=== PATIENT | male | born 1990 | race Caucasian/White ===

== ENCOUNTER 2021-05-20 22:16 | Inpatient (IN) ==
[2021-05-20] MEDS ORDERED: SODIUM CHLORIDE 0.9% 1,000 ML IV STA (22:54)
[2021-05-20 23:39] LABS: Basophils % 0.2 % (0.0-0.8); Hematocrit 42.5 VOL% (42.0-52.0); Hemoglobin 14.1 GM/DL (14.0-18.0); Immature Granulocytes % 0.9 %; Immature Granulocytes Absolute 0.04 #; Lymphocytes # 0.7 10*3/uL (1.4-4.0); Lymphocytes % 15.3 % (21.2-54.2); Mean Corpuscular HGB Conc 33.2 GM/DL (32-36); Mean Corpuscular Volume 86.7 FL (87-102); Monocytes % 1.8 % (1.7-12.7); Neutrophils % 81.8 % (38.7-73.9); Platelet Count 99 T/CUMM (130-400); Red Cell Distribution Width 13.7 % (9.3-17.3); White Blood Count 4.4 T/CUMM (4-12)
[2021-05-20] MEDS ORDERED: AZITHROMYCIN INJ 500 MG in SODIUM CHLORIDE 0.9% 250 ML IV STA (23:56)
[2021-05-20 23:59] LABS: Albumin 3.4 G/DL (3.4-5.0); Bilirubin,Total < 0.39 MG/DL (0.20-1.00); Blood Urea Nitrogen 19 MG/DL (7-18); Calcium 8.2 MG/DL (8.5-10.1); Carbon Dioxide 23 MMOL/L (21-32); Estimated Glom Filtration Rate 92 ML/MIN; Glucose 111 MG/DL (74-106); Osmolality,Calculated 281.4 MOS/KG (273-304); Potassium 3.5 MMOL/L (3.5-5.1); Sodium 140 MMOL/L (136-145)
[2021-05-21] LABS: Alanine Aminotransferase 100 U/L (16-61); Aspartate Amino Transferase 91 U/L (0-37)
[2021-05-21 00:03] LABS: Alkaline Phosphatase 39 U/L (45-117)
[2021-05-21 00:04] LABS: Ferritin 1382.5 ng/mL (26-388)
[2021-05-21] MEDS: ENOXAPARIN 40 MG/0.4 ML SYRINGE SUBCUT SCH (00:27)
[2021-05-21] MEDS: ONDANSETRON 4 MG/2 ML VIAL IV PRN ×2 (01:13→23:02)
[2021-05-21] MEDS: ACETAMINOPHEN 325 MG TABLET PO PRN ×3 (01:13→17:23)
[2021-05-21 02:21] LABS: Band Neutrophils 1 % (0-10); Lymphocytes 11 % (20-55); Segmented Neutrophils 87 % (50-85); Total Cells Counted 100
[2021-05-21 02:22] LABS: Microcytosis 1+; Platelet Estimate Decreased
[2021-05-21 03:56] LABS: ABG Base Excess 0.6 MMOL/L (-2.5-2.5); ABG HCO3 24.6 MMOL/L (20-26); ABG Oxygen Saturation 94.5 % (95-100); ABG PCO2 37.5 MM HG (35-48); ABG PH 7.435 (7.35-7.45); ABG PO2 70.4 MM HG (80-95); ABG TCO2 25.8 MMOL/L (23-27)
[2021-05-21] MEDS ORDERED: oxyCODONE IR 5 MG TABLET PO PRN (03:58)
[2021-05-21] MEDS: ZINC GLUCONATE 50 MG TABLET PO SCH (08:46)
[2021-05-21] MEDS: ASCORBIC ACID 500 MG TABLET PO SCH ×2 (08:46→21:07)
[2021-05-21] MEDS: CHOLECALCIFEROL 1,000 UNIT TABLET PO SCH (08:46)
[2021-05-21] MEDS: FAMOTIDINE 20 MG TABLET PO SCH ×2 (08:46→21:07)
[2021-05-21] MEDS: CETIRIZINE 10 MG TABLET PO SCH (08:47)
[2021-05-21] MEDS: DEXAMETHASONE 4 MG/1 ML VIAL IV SCH (08:48)
[2021-05-21] MEDS ORDERED: REMDESIVIR 200 MG in SODIUM CHLORIDE 0.9% 210 ML IV ONE ×2 (09:00→13:45)
[2021-05-21 10:07] LABS: Basophils % 0.2 % (0.0-0.8); Hematocrit 39.5 VOL% (42.0-52.0); Hemoglobin 12.9 GM/DL (14.0-18.0); Immature Granulocytes % 0.6 %; Immature Granulocytes Absolute 0.03 #; Lymphocytes # 0.9 10*3/uL (1.4-4.0); Lymphocytes % 18.2 % (21.2-54.2); Mean Corpuscular HGB Conc 32.7 GM/DL (32-36); Mean Corpuscular Volume 87.2 FL (87-102); Mean Platelet Volume 11.1 FL (9.6-12.0); Monocytes % 1.9 % (1.7-12.7); Neutrophils % 79.1 % (38.7-73.9); Platelet Count 116 T/CUMM (130-400); Red Blood Count 4.53 MC/CUMM (3.8-5.5); White Blood Count 4.8 T/CUMM (4-12)
[2021-05-21 10:48] LABS: Alanine Aminotransferase 148 U/L (16-61); Albumin 2.8 G/DL (3.4-5.0); Alkaline Phosphatase 34 U/L (45-117); Aspartate Amino Transferase 145 U/L (0-37); Bilirubin,Total < 0.39 MG/DL (0.20-1.00); Blood Urea Nitrogen 13 MG/DL (7-18); Calcium 7.8 MG/DL (8.5-10.1); Carbon Dioxide 26 MMOL/L (21-32); Estimated Glom Filtration Rate 129 ML/MIN; Ferritin 2344.2 ng/mL (26-388); Glucose 119 MG/DL (74-106); Osmolality,Calculated 275.7 MOS/KG (273-304); Potassium 3.6 MMOL/L (3.5-5.1); Sodium 138 MMOL/L (136-145); Total Protein 6.2 G/DL (6.4-8.2)
[2021-05-21 11:32] LABS: Atypical Lymphocytes Few; Band Neutrophils 4 % (0-10); Hypochromasia 1+; Lymphocytes 25 % (20-55); Microcytosis 1+; Segmented Neutrophils 69 % (50-85); Total Cells Counted 100
[2021-05-21 11:33] LABS: Platelet Estimate Decreased
[2021-05-21] MEDS: cefTRIAXone 1,000 MG in SODIUM CHLORIDE 0.9% 100 ML IV SCH (12:21)
[2021-05-21] MEDS: MELATONIN 3 MG TABLET PO PRN (21:12)
[2021-05-22] MEDS ORDERED: AZITHROMYCIN INJ 500 MG in SODIUM CHLORIDE 0.9% 250 ML IV ONE (00:03)
[2021-05-22] MEDS: ENOXAPARIN 40 MG/0.4 ML SYRINGE SUBCUT SCH (02:23)
[2021-05-22] MEDS: ASCORBIC ACID 500 MG TABLET PO SCH ×2 (09:08→20:16)
[2021-05-22] MEDS: CETIRIZINE 10 MG TABLET PO SCH (09:08)
[2021-05-22] MEDS: REMDESIVIR 100 MG in SODIUM CHLORIDE 0.9% 100 ML IV SCH (09:08)
[2021-05-22] MEDS: DEXAMETHASONE 4 MG/1 ML VIAL IV SCH (09:08)
[2021-05-22] MEDS: CHOLECALCIFEROL 1,000 UNIT TABLET PO SCH (09:09)
[2021-05-22] MEDS: FAMOTIDINE 20 MG TABLET PO SCH ×2 (09:09→20:16)
[2021-05-22] MEDS: ZINC GLUCONATE 50 MG TABLET PO SCH (09:09)
[2021-05-22] MEDS: cefTRIAXone 1,000 MG in SODIUM CHLORIDE 0.9% 100 ML IV SCH (10:53)
[2021-05-22] MEDS: ENOXAPARIN 100 MG/ML SYRINGE SUBCUT SCH (16:17)
[2021-05-22] MEDS ORDERED: ALPRAZolam 0.5 MG TABLET PO ONE (19:38)
[2021-05-22] MEDS: ONDANSETRON 4 MG/2 ML VIAL IV PRN (21:59)
[2021-05-22] MEDS: MELATONIN 3 MG TABLET PO PRN (21:59)
[2021-05-23] MEDS: ENOXAPARIN 100 MG/ML SYRINGE SUBCUT SCH ×2 (02:35→16:06)
[2021-05-23] MEDS ORDERED: ALPRAZolam 0.5 MG TABLET PO ONE (03:45)
[2021-05-23] MEDS: REMDESIVIR 100 MG in SODIUM CHLORIDE 0.9% 100 ML IV SCH (09:35)
[2021-05-23] MEDS: CETIRIZINE 10 MG TABLET PO SCH (09:36)
[2021-05-23] MEDS: DEXAMETHASONE 4 MG/1 ML VIAL IV SCH (09:37)
[2021-05-23] MEDS: FAMOTIDINE 20 MG TABLET PO SCH ×2 (09:37→20:37)
[2021-05-23] MEDS: ZINC GLUCONATE 50 MG TABLET PO SCH (09:37)
[2021-05-23] MEDS: CHOLECALCIFEROL 1,000 UNIT TABLET PO SCH (09:37)
[2021-05-23] MEDS: ASCORBIC ACID 500 MG TABLET PO SCH ×2 (09:37→20:38)
[2021-05-23] MEDS: cefTRIAXone 1,000 MG in SODIUM CHLORIDE 0.9% 100 ML IV SCH (11:11)
[2021-05-23] MEDS ORDERED: ALBUTEROL 2.5 MG/3 ML NEB RESP TX PRN (16:38)
[2021-05-23] MEDS: ACETAMINOPHEN 325 MG TABLET PO PRN (19:31)
[2021-05-23] MEDS: traZODone 50 MG TABLET PO PRN (20:38)
[2021-05-23] MEDS: MELATONIN 3 MG TABLET PO SCH (21:05)
[2021-05-23] MEDS: CHOLECALCIFEROL 5,000 UNIT TABLET PO SCH (21:05)
[2021-05-24] MEDS: methylPREDNISolone SOD SUC 40 MG/1 ML VIAL IV SCH ×5 (00:01→18:33)
[2021-05-24] MEDS: guaiFENesin/CODEINE 5 ML LIQUID PO PRN (00:01)
[2021-05-24] MEDS: ENOXAPARIN 100 MG/ML SYRINGE SUBCUT SCH (03:30)
[2021-05-24 03:47] LABS: ABG Base Excess 2.2 MMOL/L (-2.5-2.5); ABG HCO3 26.2 MMOL/L (20-26); ABG Oxygen Saturation 89.4 % (95-100); ABG PCO2 37.8 MM HG (35-48); ABG PH 7.447 (7.35-7.45); ABG PO2 58.9 MM HG (80-95); ABG TCO2 22.4 MMOL/L (23-27)
[2021-05-24 06:12] LABS: Basophils % 0.2 % (0.0-0.8); Hematocrit 42.8 VOL% (42.0-52.0); Hemoglobin 13.7 GM/DL (14.0-18.0); Immature Granulocytes % 1.5 %; Immature Granulocytes Absolute 0.08 #; Lymphocytes # 1.1 10*3/uL (1.4-4.0); Lymphocytes % 20.1 % (21.2-54.2); Mean Corpuscular Volume 87.9 FL (87-102); Mean Platelet Volume 10.4 FL (9.6-12.0); Monocytes % 7.2 % (1.7-12.7); Platelet Count 250 T/CUMM (130-400); Red Blood Count 4.87 MC/CUMM (3.8-5.5); Red Cell Distribution Width 13.4 % (9.3-17.3); White Blood Count 5.3 T/CUMM (4-12)
[2021-05-24 06:55] LABS: Calcium 8.3 MG/DL (8.5-10.1); Osmolality,Calculated 280.5 MOS/KG (273-304)
[2021-05-24 07:01] LABS: Hypochromasia 1+; Lymphocytes 13 % (20-55); Microcytosis 1+; Platelet Estimate Adequate; Segmented Neutrophils 84 % (50-85); Total Cells Counted 100
[2021-05-24] MEDS: ZINC GLUCONATE 50 MG TABLET PO SCH (09:16)
[2021-05-24] MEDS: CHOLECALCIFEROL 5,000 UNIT TABLET PO SCH ×2 (09:16→22:01)
[2021-05-24] MEDS: ASCORBIC ACID 500 MG TABLET PO SCH ×2 (09:16→22:00)
[2021-05-24] MEDS: FAMOTIDINE 20 MG TABLET PO SCH ×2 (09:16→22:00)
[2021-05-24] MEDS: CETIRIZINE 10 MG TABLET PO SCH (09:16)
[2021-05-24 10:07] LABS: Alanine Aminotransferase 105 U/L (16-61); Alkaline Phosphatase 42 U/L (45-117); Aspartate Amino Transferase 68 U/L (0-37); Bilirubin,Direct < 0.100 MG/DL (0.0-0.20); Bilirubin,Indirect 0.3 MG/DL (0.0-1.0); Bilirubin,Total < 0.39 MG/DL (0.20-1.00); Total Protein 6.7 G/DL (6.4-8.2)
[2021-05-24] MEDS: cefTRIAXone 1,000 MG in SODIUM CHLORIDE 0.9% 100 ML IV SCH (11:45)
[2021-05-24] MEDS: IVERMECTIN 3 MG TABLET PO SCH (20:48)
[2021-05-24] MEDS: traZODone 50 MG TABLET PO PRN (22:00)
[2021-05-24] MEDS: MELATONIN 3 MG TABLET PO SCH (22:00)
[2021-05-24] MEDS: ENOXAPARIN 60 MG/0.6 ML SYRINGE SUBCUT SCH (22:00)
[2021-05-25] MEDS: methylPREDNISolone SOD SUC 40 MG/1 ML VIAL IV SCH ×4 (00:01→17:34)
[2021-05-25] MEDS: guaiFENesin/CODEINE 5 ML LIQUID PO PRN (05:26)
[2021-05-25 07:09] LABS: Basophils % 0.2 % (0.0-0.8); Hematocrit 42.9 VOL% (42.0-52.0); Hemoglobin 13.8 GM/DL (14.0-18.0); Immature Granulocytes % 1.5 %; Immature Granulocytes Absolute 0.08 #; Lymphocytes # 1.2 10*3/uL (1.4-4.0); Lymphocytes % 22.1 % (21.2-54.2); Mean Corpuscular HGB Conc 32.2 GM/DL (32-36); Mean Corpuscular Volume 87.4 FL (87-102); Mean Platelet Volume 9.9 FL (9.6-12.0); Monocytes % 8.2 % (1.7-12.7); Platelet Count 301 T/CUMM (130-400); Red Blood Count 4.91 MC/CUMM (3.8-5.5); Red Cell Distribution Width 13.2 % (9.3-17.3); White Blood Count 5.3 T/CUMM (4-12)
[2021-05-25 07:33] LABS: Band Neutrophils 1 % (0-10); Lymphocytes 20 % (20-55); Segmented Neutrophils 69 % (50-85); Total Cells Counted 100
[2021-05-25 07:34] LABS: Atypical Lymphocytes Few; Hypochromasia 1+; Microcytosis 1+; Platelet Estimate Normal
[2021-05-25 07:45] LABS: Calcium 8.4 MG/DL (8.5-10.1); Ferritin 1328.6 ng/mL (26-388); Osmolality,Calculated 283.4 MOS/KG (273-304); Potassium 3.8 MMOL/L (3.5-5.1)
[2021-05-25] MEDS: ENOXAPARIN 60 MG/0.6 ML SYRINGE SUBCUT SCH ×2 (09:13→21:43)
[2021-05-25] MEDS: ASCORBIC ACID 500 MG TABLET PO SCH ×2 (09:15→21:42)
[2021-05-25] MEDS: cefTRIAXone 1,000 MG in SODIUM CHLORIDE 0.9% 100 ML IV SCH (09:15)
[2021-05-25] MEDS: ZINC GLUCONATE 50 MG TABLET PO SCH (09:16)
[2021-05-25] MEDS: CHOLECALCIFEROL 5,000 UNIT TABLET PO SCH ×2 (09:16→21:42)
[2021-05-25] MEDS: CETIRIZINE 10 MG TABLET PO SCH (09:16)
[2021-05-25] MEDS: FAMOTIDINE 20 MG TABLET PO SCH ×2 (09:16→21:42)
[2021-05-25] MEDS: IVERMECTIN 3 MG TABLET PO SCH (10:08)
[2021-05-25] MEDS ORDERED: TOCILIZUMAB 800 MG in SODIUM CHLORIDE 0.9% 100 ML IV ONE (11:00)
[2021-05-25] MEDS: MELATONIN 3 MG TABLET PO SCH (21:42)
[2021-05-25] MEDS: traZODone 50 MG TABLET PO PRN (21:42)
[2021-05-25] MEDS: ACETAMINOPHEN 325 MG TABLET PO PRN (21:48)
[2021-05-26] MEDS: methylPREDNISolone SOD SUC 40 MG/1 ML VIAL IV SCH ×4 (00:48→17:58)
[2021-05-26 06:32] LABS: Basophils % 0.1 % (0.0-0.8); Hematocrit 42.9 VOL% (42.0-52.0); Hemoglobin 13.8 GM/DL (14.0-18.0); Immature Granulocytes % 2.3 %; Lymphocytes % 11.3 % (21.2-54.2); Mean Corpuscular HGB Conc 32.2 GM/DL (32-36); Mean Corpuscular Volume 87.4 FL (87-102); Mean Platelet Volume 9.9 FL (9.6-12.0); Monocytes % 8.4 % (1.7-12.7); Neutrophils % 77.9 % (38.7-73.9); Platelet Count 343 T/CUMM (130-400); Red Blood Count 4.91 MC/CUMM (3.8-5.5); Red Cell Distribution Width 12.9 % (9.3-17.3); White Blood Count 8.7 T/CUMM (4-12)
[2021-05-26 07:22] LABS: Alanine Aminotransferase 117 U/L (16-61); Albumin 2.9 G/DL (3.4-5.0); Alkaline Phosphatase 40 U/L (45-117); Aspartate Amino Transferase 39 U/L (0-37); Blood Urea Nitrogen 21 MG/DL (7-18); Calcium 8.5 MG/DL (8.5-10.1); Carbon Dioxide 24 MMOL/L (21-32); Estimated Glom Filtration Rate 154 ML/MIN; Glucose 154 MG/DL (74-106); Osmolality,Calculated 278.8 MOS/KG (273-304); Potassium 3.9 MMOL/L (3.5-5.1); Sodium 137 MMOL/L (136-145); Total Protein 6.3 G/DL (6.4-8.2)
[2021-05-26] MEDS: ENOXAPARIN 60 MG/0.6 ML SYRINGE SUBCUT SCH ×2 (09:04→22:10)
[2021-05-26] MEDS: FAMOTIDINE 20 MG TABLET PO SCH ×2 (09:04→22:08)
[2021-05-26] MEDS: cefTRIAXone 1,000 MG in SODIUM CHLORIDE 0.9% 100 ML IV SCH (09:04)
[2021-05-26] MEDS: IVERMECTIN 3 MG TABLET PO SCH (09:05)
[2021-05-26] MEDS: CETIRIZINE 10 MG TABLET PO SCH (09:05)
[2021-05-26] MEDS: ZINC GLUCONATE 50 MG TABLET PO SCH (09:05)
[2021-05-26] MEDS: ASCORBIC ACID 500 MG TABLET PO SCH ×2 (09:05→22:09)
[2021-05-26] MEDS: CHOLECALCIFEROL 5,000 UNIT TABLET PO SCH ×2 (09:05→22:08)
[2021-05-26] MEDS: traZODone 50 MG TABLET PO PRN (22:08)
[2021-05-26] MEDS: MELATONIN 3 MG TABLET PO SCH (22:08)
[2021-05-27] MEDS: methylPREDNISolone SOD SUC 40 MG/1 ML VIAL IV SCH ×4 (00:38→17:33)
[2021-05-27 05:13] LABS: Basophils % 0.2 % (0.0-0.8); Hematocrit 41.6 VOL% (42.0-52.0); Hemoglobin 13.6 GM/DL (14.0-18.0); Immature Granulocytes % 3.7 %; Immature Granulocytes Absolute 0.42 #; Lymphocytes # 0.8 10*3/uL (1.4-4.0); Lymphocytes % 6.9 % (21.2-54.2); Mean Corpuscular HGB Conc 32.7 GM/DL (32-36); Mean Corpuscular Volume 86.3 FL (87-102); Mean Platelet Volume 9.6 FL (9.6-12.0); Monocytes % 7.9 % (1.7-12.7); Neutrophils % 81.3 % (38.7-73.9); Platelet Count 367 T/CUMM (130-400); Red Blood Count 4.82 MC/CUMM (3.8-5.5); Red Cell Distribution Width 12.9 % (9.3-17.3); White Blood Count 11.4 T/CUMM (4-12)
[2021-05-27 05:46] LABS: Alanine Aminotransferase 83 U/L (16-61); Albumin 2.7 G/DL (3.4-5.0); Alkaline Phosphatase 36 U/L (45-117); Aspartate Amino Transferase 21 U/L (0-37); Blood Urea Nitrogen 25 MG/DL (7-18); Calcium 8.1 MG/DL (8.5-10.1); Carbon Dioxide 25 MMOL/L (21-32); Estimated Glom Filtration Rate 154 ML/MIN; Ferritin 978.5 ng/mL (26-388); Glucose 151 MG/DL (74-106); Osmolality,Calculated 285.4 MOS/KG (273-304); Potassium 4.1 MMOL/L (3.5-5.1); Sodium 140 MMOL/L (136-145); Total Protein 6.2 G/DL (6.4-8.2)
[2021-05-27] MEDS: IVERMECTIN 3 MG TABLET PO SCH (09:27)
[2021-05-27] MEDS: ZINC GLUCONATE 50 MG TABLET PO SCH (09:27)
[2021-05-27] MEDS: ENOXAPARIN 60 MG/0.6 ML SYRINGE SUBCUT SCH ×2 (09:27→22:02)
[2021-05-27] MEDS: FAMOTIDINE 20 MG TABLET PO SCH ×2 (09:27→22:02)
[2021-05-27] MEDS: ASCORBIC ACID 500 MG TABLET PO SCH ×2 (09:27→22:01)
[2021-05-27] MEDS: cefTRIAXone 1,000 MG in SODIUM CHLORIDE 0.9% 100 ML IV SCH (09:27)
[2021-05-27] MEDS: CHOLECALCIFEROL 5,000 UNIT TABLET PO SCH ×2 (09:27→22:01)
[2021-05-27] MEDS: CETIRIZINE 10 MG TABLET PO SCH (09:28)
[2021-05-27] MEDS: BARICITINIB 2 MG TABLET PO SCH (17:07)
[2021-05-27] MEDS: CIPROFLOXACIN INJ 400 MG/200 ML PREMIX IV SCH (17:07)
[2021-05-27] MEDS: traZODone 50 MG TABLET PO PRN (22:01)
[2021-05-27] MEDS: MELATONIN 3 MG TABLET PO SCH (22:01)
[2021-05-28] MEDS: methylPREDNISolone SOD SUC 40 MG/1 ML VIAL IV SCH ×4 (01:00→18:47)
[2021-05-28] MEDS: CIPROFLOXACIN INJ 400 MG/200 ML PREMIX IV SCH ×2 (04:20→16:30)
[2021-05-28 05:09] LABS: Basophils # 0.1 10*3/uL (0.0-0.2); Basophils % 0.5 % (0.0-0.8); Hematocrit 41.6 VOL% (42.0-52.0); Immature Granulocytes % 7.7 %; Immature Granulocytes Absolute 0.89 #; Lymphocytes # 0.8 10*3/uL (1.4-4.0); Lymphocytes % 7.1 % (21.2-54.2); Mean Corpuscular HGB Conc 33.7 GM/DL (32-36); Mean Corpuscular Volume 85.8 FL (87-102); Mean Platelet Volume 9.9 FL (9.6-12.0); Monocytes % 6.3 % (1.7-12.7); Neutrophils % 78.4 % (38.7-73.9); Platelet Count 422 T/CUMM (130-400); Red Blood Count 4.85 MC/CUMM (3.8-5.5); Red Cell Distribution Width 12.7 % (9.3-17.3); White Blood Count 11.5 T/CUMM (4-12)
[2021-05-28 05:39] LABS: Lymphocytes 3 % (20-55); Platelet Estimate Adequate; Segmented Neutrophils 88 % (50-85); Total Cells Counted 100
[2021-05-28 05:42] LABS: Alanine Aminotransferase 62 U/L (16-61); Albumin 2.6 G/DL (3.4-5.0); Alkaline Phosphatase 40 U/L (45-117); Aspartate Amino Transferase 14 U/L (0-37); Blood Urea Nitrogen 21 MG/DL (7-18); Calcium 8.1 MG/DL (8.5-10.1); Carbon Dioxide 23 MMOL/L (21-32); Estimated Glom Filtration Rate 146 ML/MIN; Ferritin 1005.5 ng/mL (26-388); Glucose 156 MG/DL (74-106); Osmolality,Calculated 282.5 MOS/KG (273-304); Potassium 3.9 MMOL/L (3.5-5.1); Sodium 139 MMOL/L (136-145)
[2021-05-28] MEDS: ENOXAPARIN 60 MG/0.6 ML SYRINGE SUBCUT SCH ×2 (09:10→22:00)
[2021-05-28] MEDS: IVERMECTIN 3 MG TABLET PO SCH (09:11)
[2021-05-28] MEDS: ZINC GLUCONATE 50 MG TABLET PO SCH (09:11)
[2021-05-28] MEDS: CETIRIZINE 10 MG TABLET PO SCH (09:11)
[2021-05-28] MEDS: FAMOTIDINE 20 MG TABLET PO SCH ×2 (09:11→22:00)
[2021-05-28] MEDS: ASCORBIC ACID 500 MG TABLET PO SCH ×2 (09:11→22:00)
[2021-05-28] MEDS: CHOLECALCIFEROL 5,000 UNIT TABLET PO SCH ×2 (09:11→22:00)
[2021-05-28] MEDS: cefTRIAXone 1,000 MG in SODIUM CHLORIDE 0.9% 100 ML IV SCH (09:11)
[2021-05-28] MEDS: BARICITINIB 2 MG TABLET PO SCH (10:04)
[2021-05-29] MEDS: CIPROFLOXACIN INJ 400 MG/200 ML PREMIX IV SCH ×2 (04:25→17:11)
[2021-05-29] MEDS: methylPREDNISolone SOD SUC 40 MG/1 ML VIAL IV SCH ×5 (05:50→23:55)
[2021-05-29] MEDS: CHOLECALCIFEROL 5,000 UNIT TABLET PO SCH ×2 (08:48→21:55)
[2021-05-29] MEDS: CETIRIZINE 10 MG TABLET PO SCH (08:48)
[2021-05-29] MEDS: ENOXAPARIN 60 MG/0.6 ML SYRINGE SUBCUT SCH ×2 (08:48→21:55)
[2021-05-29] MEDS: ZINC GLUCONATE 50 MG TABLET PO SCH (08:48)
[2021-05-29] MEDS: FAMOTIDINE 20 MG TABLET PO SCH ×2 (08:48→21:55)
[2021-05-29] MEDS: ASCORBIC ACID 500 MG TABLET PO SCH ×2 (08:48→21:55)
[2021-05-29] MEDS: BARICITINIB 2 MG TABLET PO SCH (08:54)
[2021-05-29] MEDS: MELATONIN 3 MG TABLET PO SCH ×2 (23:55)
[2021-05-29] MEDS: traZODone 50 MG TABLET PO PRN ×2 (23:55)
[2021-05-30] MEDS: CIPROFLOXACIN INJ 400 MG/200 ML PREMIX IV SCH ×2 (04:30→15:58)
[2021-05-30 04:44] LABS: Basophils # 0.1 10*3/uL (0.0-0.2); Basophils % 0.6 % (0.0-0.8); Hematocrit 41.7 VOL% (42.0-52.0); Hemoglobin 13.8 GM/DL (14.0-18.0); Immature Granulocytes % 8.5 %; Immature Granulocytes Absolute 1.22 #; Lymphocytes # 0.8 10*3/uL (1.4-4.0); Lymphocytes % 5.7 % (21.2-54.2); Mean Corpuscular HGB Conc 33.1 GM/DL (32-36); Mean Corpuscular Volume 85.5 FL (87-102); Mean Platelet Volume 9.8 FL (9.6-12.0); Neutrophils % 77.2 % (38.7-73.9); Platelet Count 452 T/CUMM (130-400); Red Blood Count 4.88 MC/CUMM (3.8-5.5); Red Cell Distribution Width 12.9 % (9.3-17.3); White Blood Count 14.4 T/CUMM (4-12)
[2021-05-30 05:16] LABS: Calcium 8.3 MG/DL (8.5-10.1); Ferritin 888.7 ng/mL (26-388); Osmolality,Calculated 283.4 MOS/KG (273-304); Potassium 3.8 MMOL/L (3.5-5.1)
[2021-05-30 05:23] LABS: Band Neutrophils 2 % (0-10); Hypochromasia 1+; Lymphocytes 7 % (20-55); Microcytosis 1+; Segmented Neutrophils 80 % (50-85); Total Cells Counted 100
[2021-05-30 05:24] LABS: Platelet Estimate Increased
[2021-05-30] MEDS: methylPREDNISolone SOD SUC 40 MG/1 ML VIAL IV SCH ×4 (05:40→23:55)
[2021-05-30] MEDS: BARICITINIB 2 MG TABLET PO SCH (09:29)
[2021-05-30] MEDS: ZINC GLUCONATE 50 MG TABLET PO SCH (09:29)
[2021-05-30] MEDS: FAMOTIDINE 20 MG TABLET PO SCH ×2 (09:29→21:55)
[2021-05-30] MEDS: CETIRIZINE 10 MG TABLET PO SCH (09:29)
[2021-05-30] MEDS: ENOXAPARIN 60 MG/0.6 ML SYRINGE SUBCUT SCH ×2 (09:29→21:55)
[2021-05-30] MEDS: CHOLECALCIFEROL 5,000 UNIT TABLET PO SCH ×2 (09:29→21:55)
[2021-05-30] MEDS: ASCORBIC ACID 500 MG TABLET PO SCH ×2 (09:29→21:55)
[2021-05-30] MEDS: traZODone 50 MG TABLET PO PRN (23:55)
[2021-05-30] MEDS: MELATONIN 3 MG TABLET PO SCH (23:55)
[2021-05-31] MEDS: CIPROFLOXACIN INJ 400 MG/200 ML PREMIX IV SCH ×2 (03:51→21:05)
[2021-05-31 04:18] LABS: Basophils # 0.1 10*3/uL (0.0-0.2); Basophils % 0.8 % (0.0-0.8); Hematocrit 40.7 VOL% (42.0-52.0); Hemoglobin 13.7 GM/DL (14.0-18.0); Immature Granulocytes % 9.9 %; Immature Granulocytes Absolute 1.55 #; Lymphocytes % 6.2 % (21.2-54.2); Mean Corpuscular HGB Conc 33.7 GM/DL (32-36); Mean Corpuscular Volume 85.5 FL (87-102); Mean Platelet Volume 10.1 FL (9.6-12.0); Monocytes % 7.3 % (1.7-12.7); Neutrophils % 75.8 % (38.7-73.9); Platelet Count 484 T/CUMM (130-400); Red Blood Count 4.76 MC/CUMM (3.8-5.5); White Blood Count 15.7 T/CUMM (4-12)
[2021-05-31 04:46] LABS: Hypochromasia 1+; Lymphocytes 7 % (20-55); Microcytosis 1+; Platelet Estimate Adequate; Segmented Neutrophils 90 % (50-85); Total Cells Counted 100
[2021-05-31 04:55] LABS: Albumin 2.6 G/DL (3.4-5.0); Bilirubin,Total 0.6 MG/DL (0.20-1.00); Calcium 8.3 MG/DL (8.5-10.1); Osmolality,Calculated 277.8 MOS/KG (273-304); Potassium 3.9 MMOL/L (3.5-5.1); Total Protein 5.7 G/DL (6.4-8.2)
[2021-05-31] MEDS: methylPREDNISolone SOD SUC 40 MG/1 ML VIAL IV SCH ×3 (05:00→21:05)
[2021-05-31] MEDS: ASCORBIC ACID 500 MG TABLET PO SCH ×2 (08:51→21:05)
[2021-05-31] MEDS: CHOLECALCIFEROL 5,000 UNIT TABLET PO SCH ×2 (08:51→21:05)
[2021-05-31] MEDS: FAMOTIDINE 20 MG TABLET PO SCH ×2 (08:51→21:05)
[2021-05-31] MEDS: BARICITINIB 2 MG TABLET PO SCH (08:51)
[2021-05-31] MEDS: ENOXAPARIN 60 MG/0.6 ML SYRINGE SUBCUT SCH ×2 (08:51→21:05)
[2021-05-31] MEDS: CETIRIZINE 10 MG TABLET PO SCH (08:52)
[2021-05-31] MEDS: ZINC GLUCONATE 50 MG TABLET PO SCH (08:52)
[2021-05-31] MEDS: MELATONIN 3 MG TABLET PO SCH (21:05)
[2021-06-01] MEDS: methylPREDNISolone SOD SUC 40 MG/1 ML VIAL IV SCH ×2 (03:12→08:37)
[2021-06-01] MEDS: CIPROFLOXACIN INJ 400 MG/200 ML PREMIX IV SCH (08:36)
[2021-06-01] MEDS: ENOXAPARIN 60 MG/0.6 ML SYRINGE SUBCUT SCH (08:36)
[2021-06-01] MEDS: BARICITINIB 2 MG TABLET PO SCH (08:37)
[2021-06-01] MEDS: FAMOTIDINE 20 MG TABLET PO SCH (08:37)
[2021-06-01] MEDS: ASCORBIC ACID 500 MG TABLET PO SCH (08:38)
[2021-06-01] MEDS: CETIRIZINE 10 MG TABLET PO SCH (08:38)
[2021-06-01] MEDS: CHOLECALCIFEROL 5,000 UNIT TABLET PO SCH (08:38)
[2021-06-01] MEDS: ZINC GLUCONATE 50 MG TABLET PO SCH (08:38)
[2021-06-01 09:26] VITALS: BP 121/75
== END 2021-06-01 11:53 | disposition home or self-care (01) | DRG 177 ==
LOC: N.ED 22:16 → SUATTDRO 05-21 00:03 → N.EDINP 05-21 00:03 → N.2E 05-21 00:54
PROVIDERS: ADMIT Internal Medicine; ATTEND Internal Medicine